=== PATIENT | female | born 1985 | race Two or more races ===

== ENCOUNTER 2018-07-29 06:39 | Day surgery (SDC) | payer MEDICAID ==
[2018-07-29] MEDS ORDERED: Lactated Ringers 1,000 ML IV SCH (07:00)
[2018-07-29] MEDS ORDERED: Propofol 200 MG/20 ML SDV ONE ×2 (07:03→07:56)
[2018-07-29] MEDS ORDERED: fentaNYL 100 MCG/2 ML SDV ONE (07:03)
[2018-07-29] MEDS ORDERED: Midazolam 1 MG/ML 2 ML SDV ONE (07:04)
--- NOTE | 2018-07-29 09:05 | OR ---
DATE OF PROCEDURE: 07/29/2018 PREOPERATIVE DIAGNOSIS: Gastroesophageal reflux disease, use of a proton pump inhibitor. POSTOPERATIVE DIAGNOSIS: Gastroesophageal reflux disease, use of proton pump inhibitor, possible small proximal gastric polyp. PROCEDURE PERFORMED: Esophagogastroduodenoscopy with antral biopsies for CLOtest sent for pathology to look for Helicobacter pylori, biopsy resection of possible small proximal gastric polyp, biopsy of gastroesophageal junction. SURGEON: Compa Rodrigues MD ANESTHESIA: IV anesthesia with monitored anesthesia care. INDICATION: This 33-year-old female, referred for upper endoscopy because of heartburn. She is taking a proton pump inhibitor. I counseled for upper endoscopy with possible biopsy, including risks and alternatives, and she gave her informed consent to proceed. DESCRIPTION OF PROCEDURE: The patient was placed in the left lateral decubitus position. IV anesthesia was administered by the Anesthesia Service. Time-out was held. The flexible video Olympus upper endoscope was passed through her mouth, down her esophagus, and into her stomach. The scope was easily passed through the pylorus into the duodenum, reaching its third portion. The scope was then slowly withdrawn, examining the mucosa throughout. The duodenal mucosa appeared unremarkable. The scope was brought up through the pylorus into the antrum. There was possibly some mild erythema present. Because of her use of proton pump inhibitor, which could mask Helicobacter pylori infection, we did obtain antral biopsies for CLOtest and for pathology to look for Helicobacter pylori. The scope was retroflexed. In the most proximal stomach, we thought we saw a very small polyp. This was removed with one bite of the biopsy forceps. The scope was straightened and brought up through the GE junction. Here the Z-line was not straight, consistent with gastroesophageal reflux disease. We obtained multiple totalling at least 6 biopsies of the gastroesophageal junction. The scope was then brought proximally up through remainder of the esophagus, which otherwise appeared unremarkable, and it was removed. She tolerated the procedure well. Compa Rodrigues MD /[id number]
== END 2018-07-29 09:58 | disposition home or self-care (01) ==
LOC: JP.SDS 06:39
PROVIDERS: ATTEND Surgery
DX: K21.9 Gastro-esophageal reflux disease without esophagitis (principal); K31.7 Polyp of stomach and duodenum; Z79.899 Other long term (current) drug therapy
CPT/HCPCS: 43239; 81025; 87081; 88305; J2250; J2704; J3010; J7120

== ENCOUNTER 2024-07-24 13:00 | Emergency (ER) | payer MEDICAID ==
[2024-07-24 14:49] LABS: BASOPHILS ABSOLUTE AUTO 0.04 K/uL (0.00-0.10); BASOPHILS PERCENT AUTO 0.7 % (0.1-1.3); EOSINOPHILS ABSOLUTE AUTO 0.14 K/uL (0.00-0.40); EOSINOPHILS PERCENT AUTO 2.4 % (0.0-5.4); HEMOGLOBIN 13.3 g/dL (11.2-15.5); IMMATURE GRAN ABSOLUTE AUTO 0.03 K/uL (0.00-0.23); IMMATURE GRAN PERCENT AUTO 0.5 % (0.0-0.7); LYMPHOCYTES ABSOLUTE AUTO 1.73 K/uL (0.8-3.3); LYMPHOCYTES PERCENT AUTO 29.4 % (11.4-47.7); MEAN CORPUSCULAR HEMOGLOBIN 27.7 pg (31.6-35.5); MEAN CORPUSCULAR HGB CONC 33.3 g/dL (31.6-35.5); MEAN CORPUSCULAR VOLUME 83.3 fL (81.4-99.0); MONOCYTES PERCENT AUTO 5.1 % (3.3-12.6); NEUTROPHILS ABSOLUTE AUTO 3.65 K/uL (1.0-7.6); NEUTROPHILS PERCENT AUTO 61.9 % (40.0-78.1); PLATELET COUNT,PLT 250 K/uL (130-375); WHITE BLOOD CELL COUNT,WBC 5.9 K/uL (3.2-11.0)
[2024-07-24 15:04] LABS: CALCIUM 9.2 mg/dL (8.5-10.1); CREATININE 0.7 mg/dL (0.6-1.0); EST CRCL DRUG DOSING (CG) 88.37 mL/min
== END 2024-07-24 16:19 | disposition home or self-care (01) ==
LOC: JP.ED 13:00
DX: R00.2 Palpitations (principal); Z90.49 Acquired absence of other specified parts of digestive tract
CPT/HCPCS: 36415; 80048; 85025; 85379; 93005; 99285